=== PATIENT | male | born 1980 | race Caucasian/White ===

== ENCOUNTER 2021-09-26 17:23 | Emergency (ER) | payer OTHER ==
[~2021-09-26] VITALS: Ht 180.3 cm; Wt 98.6 kg
[2021-09-26 18:05] VITALS: BP 132/80
== END 2021-09-26 19:00 | disposition home or self-care (01) ==
LOC: EMS 17:27
DX: R45.6 Violent behavior (principal); I10 Essential (primary) hypertension; F12.90 Cannabis use, unspecified, uncomplicated; F15.90 Other stimulant use, unspecified, uncomplicated; F17.210 Nicotine dependence, cigarettes, uncomplicated
CPT/HCPCS: 99285